=== PATIENT | male | born 1990 | race Caucasian/White ===

== ENCOUNTER 2023-01-06 05:08 | Emergency (ER) | payer SELFPAY ==
[2023-01-06 05:12] VITALS: BP 143/100; PULSE 107; RESP 22; TEMP 36.7; O2SAT 97; BMI 29.4
--- NOTE | 2023-01-06 05:19 | XR_ITS ---
The [address] [address] Patient Name: SHELBI JETER MRN: [id number] date: 1990 Sex: M Assigned Patient Location: ER Current Patient Location: ED.MAIN Accession/Order Number: [id number] Exam Date: 01/06/2023 05:25 Report Date: 01/06/2023 06:20 At the request of: ASH DAVID Procedure: XR knee RT 3V HISTORY: Pain along the anterior aspect of the right knee since a fall 2 days ago. XR knee RT 3V: 01/06/2023 5:25 AM EDT COMPARISON: None. FINDINGS: Frontal, oblique and lateral views of the right knee were obtained. No fracture, dislocation, joint space narrowing, joint effusion or soft tissue swelling is seen. XR/XR knee RT 3V IMPRESSION: Normal radiographs of the right knee. Electronically authenticated by: DIONE ZAVALETA Date: 01/06/2023 06:20
--- NOTE | 2023-01-06 06:25 | ED_ITS ---
HPI - Extremity Injury (Lower) General Chief Complaint: Extremity Injury, Lower Stated Complaint: RT KNEE Time Seen by Provider: 01/06/23 06:25 Mode of arrival: walk-in History of Present Illness HPI Narrative: Patient is coming to the ER with a right knee pain that started almost few days ago after he fell down the patient denies any direct trauma to the knee but he did mention that he has been having pain since he had that fall The patient did take some ibuprofen that helped with the pain came back Related Data Previous Rx's Medication Instructions Recorded acetaminophen 650 mg 650 mg PO Q8H PRN pain #20 tabs 01/06/23 tablet,extended release (Tylenol 8 Hour) prednisone 20 mg tablet 40 mg PO DAILY 5 days #10 tabs 01/06/23 Allergies Allergy/AdvReac Type Severity Reaction Status Date / Time No Known Drug Allergies Allergy Verified 01/06/23 05:16 Review of Systems ROS Status of ROS 10 or more systems reviewed and unremarkable except as noted in history and below PFSH PFSH Social History Smoking status: Current every day smoker Exam Narrative Exam Narrative: Nurses notes and vital signs reviewed and patient is not hypoxic. General: Well-appearing and in no apparent distress. Skin: Warm, dry, no pallor noted. No rash. Head: Normocephalic, atraumatic. Neck: Supple, non-tender. Eye: Pupils are equal, round and EOMI. No scleral icterus. Ears, Nose, Mouth, and Throat: TM are clear, no nasal mucosal hypertrophy. Or al mucosa is moist, no posterior oropharynx erythema, uvula is mid-line Cardiovascular: Regular Rate and Rhythm without murmur, gallop or rub. Respiratory: No accessory muscle use or respiratory distress. Lungs are clear to auscultation, no wheezing, rales or rhonchi Chest Wall: no tenderness Back: No midline thoracic or lumbar vertebral tenderness. No CVA tenderness Musculoskeletal: normal ROM, no calf or popliteal tenderness, no lower extremity edema/swelling there is some tenderness on palpation of the femoral patellar ligament GI: Abdomen is soft, non-distended. Normal bowel sounds. No masses appreciated. No tenderness to palpation. No rebound, guarding, or rigidity noted. Neurological: A&O x4. No cranial nerve dysfunction observed. No truncal ataxia. Moves all extremities. Sensation intact. Psychiatric: Cooperative and interactive. Normal mood and affect. Constitutional Vital Signs, click to edit/add: Last Vital Signs Temp 98.0 F 01/06/23 05:12 Pulse 107 H 01/06/23 05:12 Resp 22 01/06/23 05:12 BP 143/100 H 01/06/23 05:12 Pulse Ox 97 01/06/23 05:12 O2 Del Method Room Air 01/06/23 05:12 Course Vital Signs Vital signs: Vital Signs Temperature 98.0 F 01/06/23 05:12 Pulse Rate 107 H 01/06/23 05:12 Respiratory Rate 22 01/06/23 05:12 Blood Pressure 143/100 H 01/06/23 05:12 Pulse Oximetry 97 01/06/23 05:12 Oxygen Delivery Method Room Air 01/06/23 05:12 Temperature 98.0 F 01/06/23 05:12 Pulse Rate 107 H 01/06/23 05:12 Respiratory Rate 01/06/23 05:12 Blood Pressure 143/100 H 01/06/23 05:12 Pulse Oximetry 97 01/06/23 05:12 Oxygen Delivery Method Room Air 01/06/23 05:12 MDM - Extremity Injury (Lower) MDM Narrative Medical decision making narrative: X-ray of the right knee showed no acute significant pathology for mild edema right now the patient will be treated with a 5 days course of prednisone as well as Tylenol and Leroy wrap The patient is to follow up with primary care physician in next 2-3 days or to return to the emergency department should any of the signs or symptoms worsen or new symptoms develop. The patient agrees with the following Diagnosis and Treatment plan and the patient will be discharged home. Discharge Plan Discharge Chief Complaint: Extremity Injury, Lower Clinical Impression: Knee sprain Time of Disposition Decision: 06:31 Condition: Good Prescriptions / Home Meds: New prednisone 20 mg tablet 40 mg PO DAILY 5 Days Qty: 10 0RF acetaminophen [Tylenol 8 Hour] 650 mg tablet extended release 650 mg PO Q8H PRN (Reason: pain) Qty: 20 0RF Instructions: Knee Sprain (ED) Stand Alone Forms: Portal Instructions Referrals: SHEA CHRISTIANSON [Physician] - 1 week Physician,Non-Staff, MD [Primary Care Provider] - 1 week
[2023-01-06] MEDS: KETOROLAC TROMETHAMINE 30 MG/ML VIAL IM (06:40)
== END 2023-01-06 06:55 | disposition home or self-care (01) ==
PROVIDERS: Emergency Provider Emergency Medicine
DX: S83.91XA Sprain of unspecified site of right knee, initial encounter (principal); W19.XXXA Unspecified fall, initial encounter; F17.210 Nicotine dependence, cigarettes, uncomplicated
CPT/HCPCS: 73562; 96372; 99284

== ENCOUNTER 2023-01-18 16:40 | Emergency (ER) | payer SELFPAY ==
[2023-01-18 17:01] VITALS: BP 121/86; PULSE 122; RESP 16; TEMP 37.8; O2SAT 98; BMI 28.5
--- NOTE | 2023-01-18 17:14 | ECG_ITS ---
[facility] Test Date: 2023-01-18 Pat Name: SHELBI JETER Department: Room: - Gender: Male [employer]: : 1990 Requested By: [id number] Order Number: [id number] Reading MD: YULIANA DOWNEY Measurements Intervals [place] Rate: 114 P: 50 MD: 144 QRS: 80 QRSD: 88 T: -47 QT: 304 QTc: 371 Interpretive Statements [address]/T wave changes, can't exclude inferolateral ischemia 9150 abnormal ECG No previous ECG available for comparison Electronically Signed On 01-19-2023 7:01:19 EDT by YULIANA DOWNEY
[2023-01-18 18:11] LABS: Erythrocyte Sedimentation Rate 57 mm/hr (<=15)
[2023-01-18 18:12] LABS: Basophils Percent Auto 0.4 % (0.2-2.0); Eosinophils Absolute Auto 0.1 10^3/uL (0.0-0.7); Eosinophils Percent Auto 1.1 % (0.9-7.0); Hematocrit 39.6 % (42.0-54.0); Hemoglobin 13.5 g/dL (14.0-18.0); Immature Granulocytes Abs Auto 0.05 10^3/uL (0.00-0.03); Immature Granulocytes Pct Auto 0.5 % (0.0-0.5); Lymphocytes Absolute Auto 1.3 10^3/uL (1.2-3.8); Lymphocytes Percent Auto 12.5 % (20.5-60.0); Mean Corpuscular HGB Conc 34.1 g/dL (29.9-35.2); Mean Corpuscular Hemoglobin 29.5 pg (25.9-34.0); Mean Corpuscular Volume 86.7 fL (80.0-94.0); Mean Platelet Volume 8.9 fL (9.5-13.5); Monocytes Absolute Auto 0.8 10^3/uL (0.3-0.8); Monocytes Percent Auto 7.4 % (1.7-12.0); Neutrophils Absolute Auto 7.9 10^3/uL (1.4-6.5); Neutrophils Percent Auto 78.1 % (43.0-75.0); Platelet Count 372 10^3/uL (150-450); Red Blood Count 4.57 10^6/uL (4.70-6.10); Red Cell Distribution Width 13.1 % (11.0-15.0); White Blood Count 10.1 10^3/uL (4.0-11.0)
[2023-01-18 18:23] LABS: D Dimer 0.72 mg/L FEU (<=0.59)
--- NOTE | 2023-01-18 18:25 | ED_ITS ---
HPI - Chest Pain General Chief Complaint: Chest Pain Stated Complaint: CHEST PAIN, RASH Time Seen by Provider: 01/18/23 17:08 Source: patient Mode of arrival: walk-in History of Present Illness HPI narrative: patient is a 32-year-old male who presents to the emergency department for a one-week history of pain in the left anterior chest. He describes it as a squeezing pain. In the last two days he has developed a cough that is nonproduct jorge luis. He is also complaining of a rash diffusely over the body, mostly on his arms and trunk. He states he was seen in this emergency department one and a half weeks ago for knee pain and was prescribed prednisone. He states since he has been on that medication for four days, he has had a rash. He denies any itching, pain to the rash. He has had no objective fevers, vomiting. No other upper respiratory symptoms. No history of any heart or lung problems. Related Data Previous Rx's Medication Instructions Recorded acetaminophen 650 mg 650 mg PO Q8H PRN pain #20 tabs 01/06/23 tablet,extended release (Tylenol 8 Hour) prednisone 20 mg tablet 40 mg PO DAILY 5 days #10 tabs 01/06/23 hydroxyzine HCl 25 mg tablet 25 mg PO Q6H PRN itching #20 tabs 01/18/23 Allergies Allergy/AdvReac Type Severity Reaction Status Date / Time prednisone Allergy Severe Verified 01/18/23 17:07 Review of Systems ROS Constitutional Denies: fever or chills Ears, nose, mouth, and throat Denies: throat pain Cardiovascular Reports: chest pain and palpitations Respiratory Reports: cough; Denies: shortness of breath Gastrointestinal Denies: nausea or vomiting Musculoskeletal Denies: back pain or neck pain Integumentary/Breast Reports: rash Neurological Denies: headache PFSH PFSH Social History Smoking status: Current every day smoker Exam Narrative Exam Narrative: Gen.: Awake, alert, in no distress Head: Normocephalic, atraumatic ENT: Moist mucous membranes Respiratory: No respiratory distress, lungs clear bilaterally Cardio: Regular rate and rhythm Gastrointestinal: Abdomen is soft, nondistended and nontender to palpation Extremities: Moves extremities equally, no injuries noted Psych: Normal mood and affect Neuro: No focal neuro deficit Skin: Warm, dry; diffuse, large erythematous areas consistent with urticaria over the arms, back and stomach. No mucous membrane involvement. No petechiae or purpura. No blistering. No extension of the rash to the palms of the hands. No vesicles or crusting. Constitutional Vital Signs, click to edit/add: Last Vital Signs Temp 100.1 F 01/18/23 17:01 Pulse 122 H 01/18/23 17:01 Resp 16 01/18/23 17:01 BP 121/86 01/18/23 17:01 Pulse Ox 98 01/18/23 17:01 O2 Del Method Room Air 01/18/23 17:17 Course Vital Signs Vital signs: Vital Signs Temperature 100.1 F 01/18/23 17:01 Pulse Rate 122 H 01/18/23 17:01 Respiratory Rate 16 01/18/23 17:01 Blood Pressure 121/86 01/18/23 17:01 Pulse Oximetry 98 01/18/23 17:01 Oxygen Delivery Method Room Air 01/18/23 17:01 Temperature 100.1 F 01/18/23 17:01 Pulse Rate 122 H 01/18/23 17:01 Respiratory Rate 16 01/18/23 17:01 Blood Pressure 121/86 01/18/23 17:01 Pulse Oximetry 98 01/18/23 17:01 Oxygen Delivery Method Room Air 01/18/23 17:17 MDM - Chest Pain MDM Narrative Medical decision making narrative: lab studies show elevated d-dimer, the remainder of the studies are within normal limits. CTA of the chest shows no evidence of acute PE or other abnormalities. Patient was mildly tachycardic in the Emergency Room. His skin exam is consistent with urticaria. He believes his symptoms started after prednisone, so we will avoid prednisone for the urticaria and treat with antihistamines only. Follow-up with PCP and return to the Emergency Room if symptoms change or worsen. Medical Records Data Attestation: I reviewed the patient's medical records. Lab Data Attestation: I reviewed the patient's lab results. Labs: Lab Results 01/18/23 Range/Units 18:02 WBC 10.1 (4.0-11.0) 10^3/uL RBC 4.57 L (4.70-6.10) 10^6/uL Hgb 13.5 L (14.0-18.0) g/dL Hct 39.6 L (42.0-54.0) % MCV 86.7 (80.0-94.0) fL MCH 29.5 (25.9-34.0) pg MCHC 34.1 (29.9-35.2) g/dL RDW 13.1 (11.0-15.0) % Plt Count 372 (150-450) 10^3/uL MPV 8.9 L (9.5-13.5) fL Neut % (Auto) 78.1 H (43.0-75.0) % Lymph % (Auto) 12.5 L (20.5-60.0) % Dickey % (Auto) 7.4 (1.7-12.0) % Eos % (Auto) 1.1 (0.9-7.0) % Baso % (Auto) 0.4 (0.2-2.0) % Neut # (Auto) 7.9 H (1.4-6.5) 10^3/uL Lymph # (Auto) 1.3 (1.2-3.8) 10^3/uL Dickey # (Auto) 0.8 (0.3-0.8) 10^3/uL Eos # (Auto) 0.1 (0.0-0.7) 10^3/uL Baso # (Auto) 0.0 (0.0-0.1) 10^3/uL Abs Immat Gran (auto) 0.05 H (0.00-0.03) 10^3/uL Imm/Tot Granulo (auto) 0.5 (0.0-0.5) % ESR 57 H (<=15) mm/hr D-Dimer 0.72 H* (<=0.59) mg/L FEU Sodium 137 (136-145) mmol/L Potassium 3.7 (3.5-5.1) mmol/L Chloride 100 (98-107) mmol/L Carbon Dioxide 28.8 (21.0-32.0) mmol/L Anion Gap 11.9 BUN 14.0 (7.0-18.0) mg/dL Creatinine 1.54 H (0.70-1.30) mg/dL Est GFR ( Amer) >60 (>=60) Est GFR (Non-Af Amer) 52 L (>=60) BUN/Creatinine Ratio 9.1 Glucose 111 H (74-106) mg/dL Calcium 8.7 (8.5-10.1) mg/dL Total Bilirubin 1.1 H (0.2-1.0) mg/dL AST 14 L (15-37) U/L ALT 39 (16-63) U/L Alkaline Phosphatase 81 (46-116) U/L Troponin I High Sens 19.7 (4.0-76.1) pg/mL C-Reactive Protein 4.3 H (<=1.0) mg/dL Total Protein 7.3 (6.4-8.2) g/dL Albumin 3.7 (3.4-5.0) g/dL Globulin 3.6 g/dL Albumin/Globulin Ratio 1.0 TSH 1.628 (0.358-3.740) uIU/mL Imaging Data CT scan - chest: Attestation: I have reviewed the pertinent imaging results. Radiologist's impression: Procedure: CT angio chest EXAMINATION:CT angio chest INDICATION:Chest pain COMPARISON:None TECHNIQUE:Thin section transaxial slices were acquired through the chest with intravenous contrast per PE protocol. Coronal and sagittal reconstructed images were reviewed. FINDINGS: PULMONARY ARTERIES: There is good opacification of the pulmonary vasculature. No suspicious pulmonary arterial filling defects are identified to suggest pulmonary embolus. LUNGS: Dependent changes are present in the lung bases. There is no acute airspace disease to suggest infection. No nodules or masses are present in the lungs. PLEURAL CAVITY: No pleural effusion. MEDIASTINUM: Trachea and central airways are patent. HEART: The heart is unremarkable.There is no evidence of right heart strain. VASCULAR:There is no aneurysm or dissection of the thoracic aorta. LYMPH NODES:No suspicious lymphadenopathy. CHEST WALL/AXILLA: Chest wall and axilla are unremarkable. BONES: Osseous structures are unremarkable. VISUALIZED UPPER ABDOMEN: Upper abdominal structures are unremarkable. IMPRESSION: 1. No evidence of pulmonary embolus. Electronically authenticated by: MARCE MOMIN Date: 01/18/2023 19:50 ECG Data Attestation: I personally reviewed and interpreted this ECG as follows: (sinus tachycardia at a rate of 114, no acute ST elevation or ectopy. EKG reviewed by attending physician) Heart Score History: Slightly/Non-Suspicious ECG: Normal Age: <45 years Risk Factors: 1 or 2 Risk Factors Troponin: <Normal Limit Total Heart Score Recommendations & Risks:: 1 Discharge Plan Discharge Chief Complaint: Chest Pain Clinical Impression: Urticaria, Chest pain Patient Disposition: Home, Self-Care Time of Disposition Decision: 19:56 Condition: Good Prescriptions / Home Meds: New hydroxyzine HCl 25 mg tablet 25 mg PO Q6H PRN (Reason: itching) Qty: 20 0RF No Action prednisone 20 mg tablet 40 mg PO DAILY 5 Days Qty: 10 0RF acetaminophen [Tylenol 8 Hour] 650 mg tablet extended release 650 mg PO Q8H PRN (Reason: pain) Qty: 20 0RF Instructions: Chest Pain (ED), Urticaria (ED) Stand Alone Forms: Portal Instructions Referrals: Physician,Non-Staff, MD [Primary Care Provider] - 1 week
[2023-01-18 18:35] LABS: Alanine Aminotransferase 39 U/L (16-63); Albumin Level 3.7 g/dL (3.4-5.0); Alkaline Phosphatase 81 U/L (46-116); Anion Gap 11.9; Aspartate Amino Transferase 14 U/L (15-37); BUN Creatinine Ratio 9.1; Bilirubin Total 1.1 mg/dL (0.2-1.0); C Reactive Protein 4.3 mg/dL (<=1.0); Calcium 8.7 mg/dL (8.5-10.1); Carbon Dioxide 28.8 mmol/L (21.0-32.0); Chloride 100 mmol/L (98-107); Estimated GFR (African America >60 (>=60); Estimated GFR (Non-African Ame 52 (>=60); Globulin 3.6 g/dL; Glucose 111 mg/dL (74-106); Potassium 3.7 mmol/L (3.5-5.1); Sodium 137 mmol/L (136-145); Thyroid Stimulating Hormone 1.628 uIU/mL (0.358-3.740); Total Protein 7.3 g/dL (6.4-8.2); Troponin I High Sensitivity 19.7 pg/mL (4.0-76.1)
--- NOTE | 2023-01-18 18:41 | CT_ITS ---
[address] [address] Patient Name: SHELBI JETER MRN: [id number] date: 1990 Sex: M Assigned Patient Location: ER Current Patient Location: ED.MAIN Accession/Order Number: [id number] Exam Date: 01/18/2023 18:30 Report Date: 01/18/2023 19:50 At the request of: FRANK PATEL Procedure: CT angio chest EXAMINATION:CT angio chest INDICATION:Chest pain COMPARISON:None TECHNIQUE:Thin section transaxial slices were acquired through the chest with intravenous contrast per PE protocol. Coronal and sagittal reconstructed images were reviewed. FINDINGS: PULMONARY ARTERIES: There is good opacification of the pulmonary vasculature. No suspicious pulmonary arterial filling defects are identified to suggest pulmonary embolus. LUNGS: Dependent changes are present in the lung bases. There is no acute airspace disease to suggest infection. No nodules or masses are present in the lungs. PLEURAL CAVITY: No pleural effusion. MEDIASTINUM: Trachea and central airways are patent. HEART: The heart is unremarkable.There is no evidence of right heart strain. VASCULAR:There is no aneurysm or dissection of the thoracic aorta. LYMPH NODES:No suspicious lymphadenopathy. CHEST WALL/AXILLA: Chest wall and axilla are unremarkable. BONES: Osseous structures are unremarkable. VISUALIZED UPPER ABDOMEN: Upper abdominal structures are unremarkable. CT/CT angio chest IMPRESSION: 1. No evidence of pulmonary embolus. Electronically authenticated by: MARCE MOMIN Date: 01/18/2023 19:50
[2023-01-18 20:16] VITALS: BP 117/82; PULSE 115; O2SAT 98
== END 2023-01-18 20:17 | disposition home or self-care (01) ==
PROVIDERS: Physician Assistant; Emergency Provider Emergency Medicine
DX: R07.9 Chest pain, unspecified (principal); L50.9 Urticaria, unspecified; F17.210 Nicotine dependence, cigarettes, uncomplicated; R79.89 Other specified abnormal findings of blood chemistry
CPT/HCPCS: 36415; 71275; 80053; 84443; 84484; 85025; 85378; 85652; 86140; 93005; 99285; Q9967